=== PATIENT | male | born 2000 | race African-American/Black ===

== ENCOUNTER 2023-01-09 08:38 | Day surgery (SDC) | payer BC ==
[2023-01-07 10:36] VITALS: BMI 30.8
[2023-01-09] MEDS ORDERED: MORPHINE SULFATE 10 MG/1 ML *VIAL ONE (10:46)
[2023-01-09] MEDS ORDERED: BUPIVACAINE HCL 100 ML ONE (10:47)
[2023-01-09] MEDS ORDERED: oxyCODONE HCL 5 MG TABLET PO PRN (10:56)
[2023-01-09] MEDS ORDERED: ONDANSETRON 4 MG/2 ML VIAL IVPUSH PRN (10:56)
[2023-01-09] MEDS ORDERED: IBUPROFEN 800 MG/8 ML IJ IVPB PRN (10:56)
[2023-01-09] MEDS ORDERED: LACTATED RINGERS SOLUTION 1,000 ML IV SCH (11:00)
[2023-01-09] MEDS ORDERED: PROPOFOL 40 ML ONE (11:07)
[2023-01-09] MEDS ORDERED: LIDOCAINE HCL/PF 2% SDV 5ML VIAL ONE (11:07)
[2023-01-09] MEDS ORDERED: ceFAZolin SODIUM 1 GM VIAL ONE (11:07)
[2023-01-09] MEDS ORDERED: MIDAZOLAM HCL 2 MG/2 ML SINGLE DOSE VIAL ONE (11:07)
[2023-01-09] MEDS ORDERED: ONDANSETRON 4 MG/2 ML VIAL ONE (11:56)
[2023-01-09] MEDS ORDERED: DEXAMETHASONE SOD PHOSPHATE 4 MG/1 ML VIAL ONE (11:56)
[2023-01-09] MEDS ORDERED: IBUPROFEN 800 MG/8 ML IJ IVPB ONE (13:18)
[2023-01-09 14:14] VITALS: RESP 20; TEMP 97
[2023-01-09 14:48] VITALS: BP 123/64; PULSE 62
== END 2023-01-09 14:40 | disposition home or self-care (01) ==
LOC: FASU 08:38
PROVIDERS: ATTEND Orthopaedic Surgery
PROC: 0SBD4ZZ Excision of Left Knee Joint, Percutaneous Endoscopic Approach (ICD-10-PCS; 2023-01-09)
PROC: 0SCD4ZZ Extirpation of Matter from Left Knee Joint, Percutaneous Endoscopic Approach (ICD-10-PCS; 2023-01-09)
PROC: 0SBD4ZZ Excision of Left Knee Joint, Percutaneous Endoscopic Approach (ICD-10-PCS; principal; 2023-01-09 11:46)
DX: M25.662 Stiffness of left knee, not elsewhere classified (principal); S83.282A Other tear of lateral meniscus, current injury, left knee, initial encounter; M22.42 Chondromalacia patellae, left knee; M25.862 Other specified joint disorders, left knee; M67.262 Synovial hypertrophy, not elsewhere classified, left lower leg
CPT/HCPCS: 94760